=== PATIENT | female | born 1975 | race Caucasian/White ===

== ENCOUNTER 2016-04-25 19:26 | Emergency (ER) | payer SELFPAY ==
[2016-04-25 19:56] VITALS: BP 149/82
[2016-04-25] MEDS ORDERED: methylPREDNISolone 125 MG* 2 ML VIAL IM ONE (20:10)
[2016-04-25] MEDS ORDERED: diPHENhydraMINE PO* 50 MG PO ONE (20:11)
--- NOTE | 2016-04-25 20:40 | UC ---
Skin Complaint HPI - HPI Summary HPI Summary: TODAY DEVELOPED ITCHY RED RASH ON RIGHT FOREARM, RASH IS BEGINNING TO SPREAD AND SWELL ON RIGHT FOREARM. NO THROAT SWELLING. PATIENT HAS MULTIPLE ALLERGIES AND IS CONCERNED ABOUT DEVELOPING ANOTHER SINCE CAUSE/CONTACT IS UNKNOWN. DID GET NEW PUPPY THREE WEEKS AGO. HAS NOT TAKEN ANYTHING FOR RASH, BUT PUT CALAMINE LOTION ON RASH TO CALM ITCHINESS. NO TICK BITES. NO RECENT TRAUMA. NO EVIDENCE OF RASH ANYWHERE ELSE. - History of Current Complaint Chief Complaint: UCSkin Time Seen by Provider: 04/25/16 19:48 Stated Complaint: SPOT ON ARM Hx Obtained From: Patient Hx Last Menstrual Period: 04/25/16 Onset/Duration: Sudden Onset, Lasting Hours, Still Present Skin Exposure Onset/Duration: Hours Ago Timing: Constant Onset Severity: Mild Current Severity: Moderate Location: Discrete - RIGHT FOREARM Character: Swelling, Pruritus, Redness Aggravating: Nothing Alleviating: OTC Creams/Salves - CALAMINE Associated Signs & Symptoms: Positive: Negative, Rash. Negative: Vomiting, Numbness, Thirst, Difficulty Breathing, Fever, Chills, Cough, Wheezing, Chest Pain, Hoarseness, Throat Tightening, Syncope, Drainage, Bruising, Tenderness, Red Streaks Related History: Possible Reaction to: Environmental Exposure - Allergy/Home Medications Allergies/Adverse Reactions: Allergies Allergy/AdvReac Type Severity Reaction Status Date / Time Amoxicillin Allergy Intermediate Hives Verified 04/25/16 19:48 Erythromycin Allergy Intermediate Unknown Verified 04/25/16 19:48 Reaction Details Chocolate Allergy Coughing Verified 04/25/16 19:48 Lactose Allergy Abdominal Verified 04/25/16 19:48 Pain Cephalexin [From Keflex] AdvReac See Comment Verified 04/25/16 19:48 NUTS Allergy Severe Anaphylatic Uncoded 04/25/16 19:48 Shock POTATO Allergy Intermediate Hives Uncoded 04/25/16 19:48 STRAWBERRIES Allergy Intermediate Itching Uncoded 04/25/16 19:48 CELERY SEEDS Allergy Mild Abdominal Uncoded 04/25/16 19:48 Pain GLUTEN Allergy Mild Diarrhea Uncoded 04/25/16 19:48 COCONUT Allergy Itching Uncoded 04/25/16 19:48 LACTOS Allergy Abdominal Uncoded 04/25/16 19:48 Pain Review of Systems Constitutional: Negative Skin: Rash - RIGHT FOREARM Eyes: Negative ENT: Negative Respiratory: Negative Cardiovascular: Negative Gastrointestinal: Negative Genitourinary: Negative Motor: Negative Neurovascular: Negative Musculoskeletal: Negative Neurological: Negative Psychological: Negative All Other Systems Reviewed And Are Negative: Yes PMH/Surg Hx/FS Hx/Imm Hx Previously Healthy: Yes Endocrine History Of: Denies: Diabetes, Thyroid Disease Cardiovascular History Of: Denies: Cardiac Disorders, Hypertension, Congestive Heart Failure GI/ History Of: Denies: Renal Disease - Surgical History Surgical History: Yes Surgery Procedure, Year, and Place: TOOTH EXTRACTION 5 MONTHS AGO; 10 YEARS AGO; LEFT KNEE MENISCUS @ 21 YRS OLD; SEVERAL ORAL SURGERIES A CHILD ( HX OF SECOND SET OF 2ND TEEETH, AND WISDOM TEETH PULLED @ 23YR OF AGE. - Family History Known Family History: Positive: Hypertension - Social History Occupation: Employed Full-time Lives: With Family Alcohol Use: None Substance Use Type: None Smoking Status (MU): Never Smoked Tobacco - Immunization History Most Recent Influenza Vaccination: Never Physical Exam Triage Information Reviewed: Yes Appearance: Well-Appearing, No Pain Distress, Well-Nourished Vital Signs: Initial Vital Signs Temp 98.7 F 04/25/16 19:49 Pulse 70 04/25/16 19:49 Resp 18 04/25/16 19:49 BP 149/82 04/25/16 19:49 Pulse Ox 100 04/25/16 19:49 Vital Signs Reviewed: Yes Eye Exam: Normal Eyes: Positive: Conjunctiva Clear ENT Exam: Normal ENT: Positive: Normal ENT inspection, Hearing grossly normal, Pharynx normal, TMs normal Dental Exam: Normal Neck exam: Normal Neck: Positive: Supple, Nontender, No Lymphadenopathy Respiratory Exam: Normal Respiratory: Positive: Chest non-tender, Lungs clear, Normal breath sounds, No respiratory distress, No accessory muscle use Cardiovascular Exam: Normal Cardiovascular: Positive: RRR, No Murmur, Pulses Normal, Brisk Capillary Refill Abdominal Exam: Normal Abdomen Description: Positive: Nontender, No Organomegaly Musculoskeletal Exam: Normal Musculoskeletal: Positive: Strength Intact, ROM Intact Neurological Exam: Normal Neurological: Positive: Alert Psychological Exam: Normal Psychological: Positive: Normal Response To Family Skin: Positive: rashes - RIGHT FOREARM ERRETHEMATOUS URITICARIAL RASH Course/Dx - Differential Diagnoses - Skin Complaint Differential Diagnoses: Cellulitis, Contact Dermatitis, Eczema, Local Allergic Reaction, MRSA, Poison Johana, Tinea, Urticaria, Varicella Zoster - Diagnoses Provider Diagnoses: RIGHT FOREARM CONTACT DERMATITIS Discharge - Discharge Plan Condition: Stable Disposition: HOME Prescriptions: Triamcinolone 0.1% Oint (NF) [Triamcinolone Acetonide] 1 % TOPICAL BID #1 tube Patient Education Materials: Contact Dermatitis (ED) Referrals: [facility] [Provider Group] Leigh Brink MD [Primary Care Provider] -
== END 2016-04-25 20:50 | disposition home or self-care (01) ==
LOC: UCEAST 19:26
DX: L25.9 Unspecified contact dermatitis, unspecified cause (principal); Z88.1 Allergy status to other antibiotic agents; Z88.0 Allergy status to penicillin
CPT/HCPCS: 96372; 99212; A9270-GY; G0463; J2930

== ENCOUNTER → 2016-09-03 08:45 | Emergency (ER) | payer SELFPAY ==
[~2016-09-03 08:45] MED LIST: NS 0.9% 1000 ML* 1,000 ML IV ONE
--- NOTE | 2016-09-03 09:13 | ED ---
Abdominal Pain/Female - HPI Summary HPI Summary: Patient presents with 2 days of intermittent RUQ pain that is made worse with eating. She has had episodes similar to this in the past that have had negative work-ups in the ED and with her PCP Leigh Molina. She had a mild URI last week and took oregano oil to help decrease inflammation in her head, and she believes the inflammation in her head spread to her abdomen. She is always mildly constipated and had a normal BM two days ago which is normal for her. She denies N/V/D, fever, urinary symptoms, bloody or dark stools. No CP, SOB, or back pain. Her pain is a sharp stabbing pain that resolves spontaneously. - History of Current Complaint Chief Complaint: EDAbdPain Stated Complaint: ABD PAIN Time Seen by Provider: 09/03/16 09:02 Hx Obtained From: Patient Hx Last Menstrual Period: 04/25/16 ?: No Onset/Duration: Gradual Onset, Lasting Hours, Resolved Timing: Hours Severity Initially: Moderate Severity Currently: Mild Pain Intensity: 2 Location: Discrete At: RUQ Radiates: No Character: Sharp Aggravating Factor(s): Food Alleviating Factor(s): Spontaneous Resolution Associated Signs and Symptoms: Positive: Negative Allergies/Adverse Reactions: Allergies Allergy/AdvReac Type Severity Reaction Status Date / Time Amoxicillin Allergy Intermediate Hives Verified 04/25/16 19:48 Erythromycin Allergy Intermediate Unknown Verified 04/25/16 19:48 Reaction Details Chocolate Allergy Coughing Verified 04/25/16 19:48 Lactose Allergy Abdominal Verified 04/25/16 19:48 Pain Cephalexin [From Keflex] AdvReac See Comment Verified 04/25/16 19:48 NUTS Allergy Severe Anaphylatic Uncoded 04/25/16 19:48 Shock POTATO Allergy Intermediate Hives Uncoded 04/25/16 19:48 STRAWBERRIES Allergy Intermediate Itching Uncoded 04/25/16 19:48 CELERY SEEDS Allergy Mild Abdominal Uncoded 04/25/16 19:48 Pain GLUTEN Allergy Mild Diarrhea Uncoded 04/25/16 19:48 COCONUT Allergy Itching Uncoded 04/25/16 19:48 LACTOS Allergy Abdominal Uncoded 04/25/16 19:48 Pain PMH/Surg Hx/FS Hx/Imm Hx Endocrine/Hematology History: Denies: Hx Diabetes, Hx Systemic Lupus Erythematosus, Hx Thyroid Disease Cardiovascular History: Denies: Hx Congestive Heart Failure, Hx Hypertension History: Denies: Hx Dialysis, Hx Renal Disease Musculoskeletal History: Denies: Hx Rheumatoid Arthritis - Cancer History Hx Chemotherapy: No - Surgical History Surgery Procedure, Year, and Place: TOOTH EXTRACTION 5 MONTHS AGO; 10 YEARS AGO; LEFT KNEE MENISCUS @ 21 YRS OLD; SEVERAL ORAL SURGERIES A CHILD ( HX OF SECOND SET OF 2ND TEEETH, AND WISDOM TEETH PULLED @ 22YR OF AGE. Infectious Disease History: No Infectious Disease History: Denies: Traveled Outside the [place] in Last 30 Days Comment Only: History Other Infectious Disease - Lyme - Family History Known Family History: Positive: Hypertension - Social History Occupation: Unemployed Lives: With Family Alcohol Use: None Substance Use Type: Reports: None Smoking Status (MU): Never Smoked Tobacco Review of Systems Negative: Fever, Chills Negative: Chest Pain Negative: Shortness Of Breath Positive: Abdominal Pain. Negative: Vomiting, Diarrhea, Nausea Positive: no symptoms reported Negative: Headache All Other Systems Reviewed And Are Negative: Yes Physical Exam - Summary Physical Exam Summary: Patient is resting on exam stretcher in no acute distress. Triage Information Reviewed: Yes Vital Signs On Initial Exam: Initial Vitals Temp Pulse Resp BP Pulse Ox 97.7 F 89 16 133/76 100 09/03/16 08:47 09/03/16 08:47 09/03/16 08:47 09/03/16 08:47 09/03/16 08:47 Vital Signs Reviewed: Yes Appearance: Positive: Well-Appearing, No Pain Distress, Well-Nourished Skin: Positive: Warm, Skin Color Reflects Adequate Perfusion, Dry, Soft Head/Face: Positive: Normal Head/Face Inspection Eyes: Positive: EOMI, KATINA, Conjunctiva Clear ENT: Positive: Hearing grossly normal, Pharynx normal Neck: Positive: Supple, Nontender, No Lymphadenopathy Respiratory/Lung Sounds: Positive: Clear to Auscultation, Breath Sounds Present Cardiovascular: Positive: RRR Abdomen Description: Positive: Soft. Negative: Nontender - mild RUQ tenderness to palpation, CVA Tenderness (R), CVA Tenderness (L), Distended, Guarding Bowel Sounds: Positive: Present Musculoskeletal: Positive: Strength/ROM Intact. Negative: Edema Left, Edema Right Neurological: Positive: Sensory/Motor Intact, Alert, Oriented to Person Place, Time, NV Bundle Intact Distally, Normal Gait Psychiatric: Positive: Affect/Mood Appropriate AVPU Assessment: Alert Diagnostics - Vital Signs Vital Signs Temp Pulse Resp BP Pulse Ox 09/03/16 08:59 98.1 F 84 16 135/64 100 09/03/16 08:47 97.7 F 89 16 133/76 100 - Laboratory Result Diagrams: 09/03/16 09:24 09/03/16 09:24 Lab Statement: Any lab studies that have been ordered have been reviewed, and results considered in the medical decision making process. Abdominal Pain Fem Course/Dx - Diagnoses Differential Diagnosis: Positive: Appendicitis, Bowel Obstruction, Constipation , Gall Bladder Disease, Hepatitis, Irritable Bowel Syndrome, Pancreatitis, Renal Colic, Urinary Tract Infection Provider Diagnoses: Abdominal pain Discharge - Discharge Plan Condition: Stable Disposition: HOME Patient Education Materials: Abdominal Pain (ED) Referrals: Leigh Brink MD [Primary Care Provider] - Additional Instructions: Please continue to drink fluids and eat your regular diet. Follow-up with your primary care provider in 2-3 days for re-evaluation.
[2016-09-03 09:44] LABS: Hematocrit 43 % (35-47); Hemoglobin 14.7 g/dl (12.0-16.0); Mean Corpuscular HGB Conc 34 g/dl (31-36); Mean Corpuscular Hemoglobin 32 pg (27-31); Mean Corpuscular Volume 93 fL (80-97); Mean Platelet Volume 7 um3 (7.4-10.4); Red Blood Count 4.63 10^6/ul (4.0-5.4); Red Cell Distribution Width 13 % (10.5-15); White Blood Count 3.8 10^3/ul (3.5-10.8)
[2016-09-03 09:48] LABS: Urine Bacteria Absent (Absent); Urine Bilirubin Negative (Negative); Urine Glucose Negative (Negative); Urine Nitrite Negative (Negative)
[2016-09-03 10:00] LABS: ALT 19 U/L (7-52); AST 20 U/L (13-39); Albumin 4.5 g/dL (3.2-5.2); Alkaline Phosphatase 53 U/L (34-104); Amylase 38 U/L (29-103); Anion Gap 7 mmol/L (2-11); BUN/Creatinine Ratio 20.8 (8-20); Blood Urea Nitrogen 15 mg/dL (6-24); CO2 Carbon Dioxide 25 mmol/L (22-32); Calcium 9.7 mg/dL (8.6-10.3); Chloride 104 mmol/L (101-111); EGFR African American 115.4 (>60); EGFR Non-African American 89.7 (>60); Globulin 3.8 g/dL (2-4); Glucose 92 mg/dL (70-100); Lipase 17 U/L (11.0-82.0); Potassium 3.4 mmol/L (3.5-5.0); Sodium 136 mmol/L (133-145); Total Protein 8.3 g/dL (6.4-8.9)
--- NOTE | 2016-09-03 10:35 | RAD ---
HISTORY: Right upper quadrant pain COMPARISONS: January 08, 2013 TECHNIQUE: Multiple transverse and longitudinal ultrasound images were obtained of the right upper quadrant of the abdomen using grayscale and color Doppler imaging. FINDINGS: LIVER: The liver is normal in shape, size, contour, and echogenicity. There are no focal parenchymal masses. There is normal hepatopedal flow of the portal vein on Doppler imaging. BILIARY TREE: There is no intrahepatic or extrahepatic biliary dilatation. The common duct measures 0.4 cm. GALLBLADDER: The gallbladder is well-visualized. There is no cholelithiasis, gallbladder wall thickening, pericholecystic fluid, or sonographic Beltran sign. PANCREAS: The head of the pancreas is unremarkable. The tail of the pancreas is not well visualized secondary to overlying bowel gas. RIGHT KIDNEY: The right kidney is normal in shape, size, contour, and echogenicity. There is no hydronephrosis or nephrolithiasis. The right kidney measures 12 x 3.9 x 6 cm. AORTA AND IVC: The aorta and IVC are unremarkable. FLUID: There are no pleural effusions. There is no free fluid within the hepatorenal recess. OTHER FINDINGS: None. IMPRESSION: NO ACUTE SONOGRAPHIC PATHOLOGY OF THE VISUALIZED PORTION OF THE ABDOMEN
[2016-09-03 11:16] VITALS: BP 117/72
[2016-09-03 13:14] LABS: Ferritin 16.2 ng/mL (11-307)
== END | disposition home or self-care (01) ==
LOC: ED 08:45
DX: R10.11 Right upper quadrant pain (principal)
CPT/HCPCS: 36415; 76705; 80053; 81003; 81015; 82150; 82728; 83605; 83690; 84702; 85025; 86140; 87086; 99282